=== PATIENT | female | born 1945 | race Caucasian/White ===

== ENCOUNTER 2017-06-23 05:30 | Emergency (ER) | payer MEDICARE, OTHER ==
--- NOTE | 2017-06-23 05:37 | ED Physician Documentation ---
General Adult - HISTORIAN Historian: patient - HPI Stated Complaint: wheezing Chief Complaint: General Adult Onset: hours Timing: still present Severity: moderate Further Comments: yes (Pt is a 71 yo female with significant wheezing this am, with difficulty getting her breath. 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 Early this am she awoke from sleep and was gasping, having trouble getting her breath with significant wheezing. Pt had no chest pain, n/v. Pt has no hx asthma/copd and has little PMHx. Pt used a number of OTC cold medications yesterday.) - ROS CONST: no problems EYES/ENT: sore throat CVS/RESP: shortness of breath, cough GI/: none MS/SKIN/LYMPH: none - PAST HX Past History: other (hypothyroidism, HTN) Allergies/Adverse Reactions: Allergies Allergy/AdvReac Type Severity Reaction Status Date / Time No Known Allergies Allergy Verified 06/23/17 05:51 Home Medications: Ambulatory Orders Medication Instructions Recorded Benazepril HCl [Lotensin] 40 mg PO DAILY 06/23/17 Levothyroxine Sodium [Synthroid] 75 mcg PO DAILY 06/23/17 - SOCIAL HX Smoking History: non-smoker - FAMILY HX Family History: No - REVIEWED ASSESSMENTS Nursing Assessment Reviewed: Yes Vitals Reviewed: Yes Progress - Progress Progress: Duoneb HFN improved Pulmicort HFN Azithromycin 500 mg po in ER. Rx Azithromycin 250 mg. Take one tablet once daily for 5 days. Rx Albuterol (90 mcg/spray). Take 2 puffs every 4 hrs as needed for wheezing. Rx Flovent (110 mcg/spray). Take 2 puffs every 12 hrs for 3 days; then 1 puff every 12 hrs for 3 days; then 1 puff daily for 3 days; then stop. Rinse mouth with water after using this inhaler. - EKG/XRAY/CT XRAY: chest (neg) General Adult Physical Exam - PHYSICAL EXAM GENERAL APPEARANCE: moderate distress EENT: pharynx normal NECK: normal inspection, supple RESPIRATORY: wheezes (L>R) CVS: reg rate & rhythm, heart sounds normal BACK: normal inspection SKIN: warm/dry, normal color EXTREMITIES: non-tender, normal range of motion, no evidence of injury, no edema NEURO: oriented X3, motor nml, sensation nml Discharge Clincal Impression: Wheezing, Allergy vs. early resp. infection Referrals: Primary Doctor,No [REFERRING] - Condition: Good Disposition: 01 HOME, SELF-CARE Decision to Admit: NO Decision Time: 06:46
[2017-06-23] MEDS: IPRATROPIUM/ALBUTEROL SULFATE 3 ML AMPUL.NEB NEB ONE (05:54)
[2017-06-23] MEDS ORDERED: BUDESONIDE 0.5MG/2ML AMPUL.NEB NEB ONE (06:06)
[2017-06-23] MEDS: BUDESONIDE 0.5MG/2ML AMPUL.NEB NEB SCH (06:27)
[2017-06-23] MEDS: AZITHROMYCIN 250 MG TABLET PO ONE (06:33)
[2017-06-23 06:53] VITALS: BP 125/75
--- NOTE | 2017-06-23 12:06 | Diagnostic Imaging Report ---
NANCY PATEL [facility] [id number] [facility] [address] [address] Report Submission Date: Jun 23, 2017 6:12:39 AM DIRECTOR OF PHYSIOTHERAPY SERVICES Patient Study Name: DULCE GENAO Date: Jun 23, 2017 5:56:59 AM DIRECTOR OF PHYSIOTHERAPY SERVICES Modality Type: CR Gender: F Description: CHEST : 47 Institution: [facility] Physician: NANCY PATEL HISTORY: 71-year-old female with lower extremity swelling. COMPARISON: None available. TECHNIQUE: 2 views of the chest were performed. FINDINGS: No pneumothorax, consolidative infiltrates, pleural effusions, or pulmonary edema. The heart is not enlarged. There is mild thoracic degenerative disc disease. IMPRESSION: No acute cardiopulmonary process identified. Electronically signed on Jun 23, 2017 6:12:39 AM DIRECTOR OF PHYSIOTHERAPY SERVICES by: Trip TIPTON
== END 2017-06-23 06:45 | disposition home or self-care (01) ==
LOC: ED 05:30
DX: R06.2 Wheezing (principal)
CPT/HCPCS: 71020; J7626; 99283